=== PATIENT | female | born 1965 | race Caucasian/White ===

== ENCOUNTER 2024-06-25 04:58 | Emergency (ER) | payer OTHER, SELFPAY ==
[2024-06-25 05:00] VITALS: BP 176/104
--- NOTE | 2024-06-25 05:36 | ED.GENMED ---
History of Present Illness
<RAI Rocha - Last Filed: 06/25/24 23:51>
General
Chief Complaint: Abdominal Symptoms
Source: patient
Exam Limitations: none
Time Seen by Provider: 06/25/24 05:21
Nursing documentation reviewed up to this point in time: agreed with
History of Present Illness
History of Present Illness:
Patient is a 58yo F w/ PMH of HLD, DM, hypothyroidism, and cholecystectomy presents to the ED w/ reflux symptoms x3 hrs. Pt was asleep and woken up w/ symptoms around 2 am. She reports 'heart burn' and 3-4 episodes of bilious vomiting. Notes acidic
taste in mouth. Reports occasional reflux sxs in past after eating spicy food. She denies eating any triggering foods yesterday. Reports L-sided chest pain x3 hrs. Pain is described as ache and is not tender. She admits to mild palpitations and MCCURDY.
Denies dizziness, numbness, edema, and vision/hearing changes. She denies recent illness, sick contacts, or travel. Denies alcohol, smoking, or drugs.
Past History
<RAI Rocha - Last Filed: 06/25/24 23:51>
Past History
ED Past Medical History: Hypercholesterolemia and NIDDM
ED Past Surgical History: Cholecystectomy and
Social History
Tobacco: Non-smoker
Alcohol: None
Drug: None
Personal:
Living: with family
Employment: Not employed
Family History
Family History: Other
Review of Systems
<RAI Rocha - Last Filed: 06/25/24 23:51>
Review of Systems
Constitutional: Denies fever, fatigue or chills
Respiratory: Denies cough or trouble breathing
Cardiac: Reports chest pain and palpitations
ABD/GI: Reports abdominal pain and nausea; Denies vomiting, diarrhea or constipated
: Denies dysuria
Musculoskeletal: Denies joint pain, joint swelling, muscle pain, muscle stiffness, edema or neck pain
Neurological: Reports headache; Denies dizzy, weakness or numbness
Phy Exam
<Cristy Mitchell [facility] Filed: 06/25/24 23:51>
General Physical Exam
General Presentation: moderate distress
General age: appears stated age
General Skin: warm and dry
General Habitus: obese
General Mental: alert
Eye Exam
Eye Exam: PERRL
Cardiovascular Exam
Cardiovascular Exam: regular rate/rhythm, no edema, no gallop and no murmur
Pulmonary Exam
Pulmonary Exam: lungs clear, no respiratory distress, no rales, no crackles, no rhonchi, no wheezing and no cough
Gastrointestinal Exam
Gastrointestinal Exam: normal bowel sounds, soft, no organomegaly and non distended
Palpation: left upper quadrant: Moderate tenderness
Neurological Exam
Neurological Exam: alert, oriented x3 and speech normal
Musculoskeletal Exam
Musculoskeletal Exam: no edema
Course
<Cristy Mitchell [facility] Filed: 06/25/24 23:51>
Orders/Labs/Results
Orders:
Orders
06/25/24
Electrocardiogram (*1) Stat
Reason for Study: Chest Pain
Comment: DONE
06/25/24 05:05
Electrocardiogram (*1) Stat
Reason for Study: Abdominal Pain
EKG- Treatment ONCE
06/25/24 05:56
Complete Blood Count/With Diff Urgent
Comprehensive Metabolic Panel Urgent
Lipase Urgent
Troponin I Urgent
06/25/24 06:42
EKG- Treatment ONCE
06/25/24 06:49
Mag Hydrox/Al Hydrox/Simeth [Maalox] 30 ml Phenobarb/Hyoscy/Atropine/Scop [] 10 ml PO NOW
06/25/24 07:16
Mag Hydrox/Al Hydrox/Simeth [Maalox] 30 ml .ROUTE .STK-MED ONE
Phenobarb/Hyoscy/Atropine/Scop [] 10 ml .ROUTE .STK-MED ONE
06/25/24 07:30
Urinalysis Reflex To Culture Urgent
Date Specimen was Collected: 06/25/24
Time Specimen was Collected: 07:25
Urine Microscopic Reflex Cult Urgent
Urine Culture Urgent
LIVIA Source: U
Specimen Description:
Date Specimen was Collected: 06/25/24
Time Specimen was Collected: 07:25
06/25/24 08:06
Troponin I Urgent
Abnormal Lab Results
06/25/24 06/25/24
05:56 07:30
Creatinine 0.5 L mg/dL
(0.6-1.0)
Glucose 290 H mg/dl
(70-99)
Alkaline Phosphatase 150 H U/L
(38-126)
Leukocyte Esterase Rfl 2+ A
(Negative)
Urine WBC (Reflex) 30-40 A /HPF
(0-5)
Urine Bacteria (Reflex) Many A
(Negative)
Urine Yeast Moderate A
(Negative)
Urine Glucose 3+ A
(Negative)
06/25/24 05:56
06/25/24 05:56
Vital Signs
Initial and Last Documented VS:
Initial Vital Signs
Temp Pulse Resp BP Pulse Ox
97.7 F 104 22 176/104 96
06/25/24 05:00 06/25/24 05:00 06/25/24 05:00 06/25/24 05:00 06/25/24 05:00
Last Documented Vital Signs
Temp Pulse Resp BP Pulse Ox
97.7 F 85 17 107/66 92
06/25/24 05:00 06/25/24 10:01 06/25/24 07:15 06/25/24 10:01 06/25/24 10:01
<Baldev Sol, DO - Last Filed: 06/25/24 07:05>
Orders/Labs/Results
Orders:
Orders
06/25/24
Electrocardiogram (*1) Stat
Reason for Study: Chest Pain
Comment: DONE
06/25/24 05:05
Electrocardiogram (*1) Stat
Reason for Study: Abdominal Pain
EKG- Treatment ONCE
06/25/24 05:56
Complete Blood Count/With Diff Urgent
Comprehensive Metabolic Panel Urgent
Lipase Urgent
Troponin I Urgent
06/25/24 06:42
EKG- Treatment ONCE
06/25/24 06:49
Mag Hydrox/Al Hydrox/Simeth [Maalox] 30 ml Phenobarb/Hyoscy/Atropine/Scop [] 10 ml PO NOW
06/25/24 07:16
Mag Hydrox/Al Hydrox/Simeth [Maalox] 30 ml .ROUTE .STK-MED ONE
Phenobarb/Hyoscy/Atropine/Scop [] 10 ml .ROUTE .STK-MED ONE
06/25/24 07:30
Urinalysis Reflex To Culture Urgent
Date Specimen was Collected: 06/25/24
Time Specimen was Collected: 07:25
Urine Microscopic Reflex Cult Urgent
Urine Culture Urgent
LIVIA Source: U
Specimen Description:
Date Specimen was Collected: 06/25/24
Time Specimen was Collected: 07:25
06/25/24 08:06
Troponin I Urgent
Abnormal Lab Results
06/25/24 06/25/24
05:56 07:30
Creatinine 0.5 L mg/dL
(0.6-1.0)
Glucose 290 H mg/dl
(70-99)
Alkaline Phosphatase 150 H U/L
(38-126)
Leukocyte Esterase Rfl 2+ A
(Negative)
Urine WBC (Reflex) 30-40 A /HPF
(0-5)
Urine Bacteria (Reflex) Many A
(Negative)
Urine Yeast Moderate A
(Negative)
Urine Glucose 3+ A
(Negative)
06/25/24 05:56
06/25/24 05:56
Vital Signs
Initial and Last Documented VS:
Initial Vital Signs
Temp Pulse Resp BP Pulse Ox
97.7 F 104 22 176/104 96
06/25/24 05:00 06/25/24 05:00 06/25/24 05:00 06/25/24 05:00 06/25/24 05:00
Last Documented Vital Signs
Temp Pulse Resp BP Pulse Ox
97.7 F 85 17 107/66 92
06/25/24 05:00 06/25/24 10:01 06/25/24 07:15 06/25/24 10:01 06/25/24 10:01
<RAI Rocha - Last Filed: 06/25/24 23:51>
MDM/Problems Addressed
Differential Diagnosis Includes:
GERD, MN, ACS
<RAI Rocha - Last Filed: 06/25/24 23:51>
*Critical Care Note
Total Time (30-74mins, 75-104mins- exclusive of procedures): Not Applicable
ED Attending Note
<RAI Rocha - Last Filed: 06/25/24 23:51>
-
Portions of this chart may have been created with voice recognition software.� Occasional wrong word or��sound alike� substitutions may have occurred due to the inherent limitations of voice recognition software.
<Baldev Sol DO - Last Filed: 06/25/24 07:05>
ED Attending Note
Patient seen and examined by attending physician: Yes
I performed the substantive portion of visit, reviewed & personally made and approve the management plan that is documented in note by myself or LISSETTE.: Yes
ED Attending Note:
Pleasant 58-year-old female that awakened several hours ago with midsternal chest pain consistent with her acid reflux. Patient states that she had 3-4 episodes of bilious vomiting. Patient does have a history of reflux but states it is usually
triggered by acidic foods. She states that she does not have any offending foods this evening. Patient states that after awakening 3 hours prior to arrival she has had constant left-sided chest pain. Denies shortness of breath. Patient was seen
in conjunction with the PA student. I have reviewed and agree with the history and treatment plan presented. On my independent physical exam, patient is awake, alert, and oriented x3, no acute distress. Heart is regular rate and rhythm without
murmurs rubs or gallops present. Lungs are clear to auscultation bilaterally without wheezes rales or rhonchi. Abdomen is soft nontender nondistended no pedal splenomegaly present. Good bowel sounds x 4 quadrants. Skin is warm and dry. Patient
moves all 4 extremities.
Vital signs are stable. Patient not hypoxic
Nursing note reviewed. I agree with nursing documentation up to this point in time.
Home Meds and allergies reviewed.
NUMBER AND COMPLEXITY OF PROBLEMS ADDRESSED AT THE ENCOUNTER
� Chronic conditions affecting care: Hyperlipidemia, jmb-[id number] diabetes
� Acute Exacerbation and/or Progression of Chronic Illness: GERD exacerbation
� Differential Diagnosis includes: GERD, ACS, musculoskeletal pain
AMOUNT AND/OR COMPLEXITY OF DATA TO BE REVIEWED AND ANALYZED
I performed an independent evaluation of the following and my interpretation is:
EKG: EKG shows normal sinus rhythm rate of 98 with left axis deviation present. Normal intervals. Right bundle branch block present. When compared to previous EKG dated February 18, 2022, there is slight T wave inversion in the
anterior leads.
Pulse Ox: Not Hypoxic
Bonding Machine Operator: Sinus Rhythm
CT:
X-rays:
Ultrasound:
Laboratory Studies:
Other:
Review of other/old records: No previous records available
Clinical information was obtained by an independent historian: is present at the bedside
Prescriptions/Medications Considered but not given:
Further testing considered but not performed: None
RISK OF COMPLICATIONS AND/OR MORBIDITY OR MORTALITY OF PATIENT MANAGEMENT
Social determinants of health affecting care: Good Social Support present at the bedside
Discussion with other providers:
Escalation of care including admission/observation vs risk of discharge considered: After being observed in the emergency department, patient is stable for discharge.
CRITICAL CARE NOTE: Not applicable
Total Time (exclusive of procedures):
Update: Patient be signed out pending lab studies and possible imaging
Discharge Plan
Departure
Patient Disposition: Home (Routine Discharge)
Date of Disposition: 06/25/24
Time of Disposition: 09:28
Patient with high blood pressure during this ER visit?: Yes
Condition: Good
Discharge Problem:
Chest pain due to GERD
Instructions: [place] Diet, Acid reflux and GERD in adults, BLOOD PRESSURE
Prescriptions:
New
sucralfate [Carafate] 100 mg/mL suspension
10 ml PO ACHS Qty: 200 0RF
pantoprazole [Protonix] 40 mg tablet,delayed release (DR/EC)
40 mg PO DAILY Qty: 10 0RF
No Action
levothyroxine 25 MCG tablet
25 mcg PO DAILY
metformin 500 MG tablet extended release 24 hr
1,000 mg PO BID
rosuvastatin 20 MG tablet
20 mg PO DAILY
empagliflozin [Jardiance] 25 MG tablet
25 mg PO DAILY
ondansetron 4 MG tablet,disintegrating
4 mg PO TIDPRN PRN (Reason: nausea/vomiting) Qty: 12 0RF
dicyclomine 20 MG tablet
20 mg PO QIDPRN PRN (Reason: PAIN/SPASM) Qty: 13 0RF
prochlorperazine maleate 10 MG tablet
10 mg PO Q8HPRN PRN (Reason: nausea) Qty: 15 0RF
Referrals:
Alicja Rodríguez CRNP [Family Provider] -
Activity Restrictions/Additional Instructions:
It was a pleasure meeting you and taking part in your care. We hope for your continued healing and wellness.
Please read discharge instructions in their entirety. However, they are for general education and may not describe your exact diagnosis at discharge. Information on your ER visit and medical conditions were discussed with you along with appropriate
follow up information...
If indicated, please take your medications as instructed and indicated on discharge paperwork.
Please schedule a follow up appointment as directed. Call to schedule an appointment
Please return to the emergency department with ANY change in, persisting, or worsening of symptoms. If any of your symptoms do not improve, or persist, or become more severe within 6-12 hours, please return to the emergency department for further
care.
Please return to the emergency department if you develop a headache, neck pain/stiffness, fever greater than 100.4F, chest pain, shortness of breath, persistent nausea, vomiting, slurred speech, difficulty walking, numbness/tingling, weakness, signs
of infection or any other symptoms that are worrisome to you.
If you have any questions or concerns please do not hesitate to call the Hospital at or E-mail me directly at [email or web address]
Interventions
Interventions:
*Risk Screen - Suicide Last Done: 06/25/24 05:00
*General Assessment Last Done: 06/25/24 07:31
*Neglect/Abuse Screening Last Done: 06/25/24 05:00
ED- Fall Risk Assessment Last Done: 06/25/24 05:20
*ED COVID-19 Vaccine History Last Done: 10/23/24 07:31
*Nursing Disposition Last Done: 06/25/24 10:28
GK-Ebxpew-Ghzslrgfar Assessment Last Done: 06/25/24 07:24
Discharge Date and Time
Discharge Date/Time: 06/25/24 10:20
Print Language: FRISIAN
[2024-06-25 06:12] LABS: % Basophils 0.7 % (0-2); % Immature Granulocytes 0.5 % (0-0.5); % Lymphocytes 20.8 % (20.5-51.1); % Monocytes 6.7 % (1.7-9.3); % Neutrophils 69.3 % (42.2-75.2); Absolute Basophils 0.1 10^3/uL (0-0.2); Absolute Eosinophils 0.2 10^3/uL (0-0.7); Absolute Lymphocytes 1.7 10^3/uL (1.2-3.4); Absolute Monocytes 0.6 10^3/uL (0.1-0.6); Absolute Neutrophils 5.8 10^3/uL (1.4-6.5); Hemoglobin 13.9 g/dL (12.0-16.0); Mean Corp Hgb Conc. 34.8 g/dL (33.0-37.0); Mean Corpuscular Hgb 30.2 pg (27.0-31.0); Mean Corpuscular Volume 86.8 fL (81.0-99.0); Mean Platelet Volume 9.1 fL (7.4-10.4); Nucleated Red Blood Cells % 0 %; Platelet Count 179 10^3/uL (130-400); Red Blood Cell Count 4.61 10^6/uL (4.20-5.40); Red Cell Dist. Width 12.9 % (11.5-14.5); White Blood Cell Count 8.4 10^3/uL (4.8-10.8)
[2024-06-25 06:27] LABS: ALT (SGPT) 19 U/L (0-35); AST (SGOT) 25 U/L (14-36); Albumin 3.8 g/dl (3.5-5.0); Alkaline Phosphatase 150 U/L (38-126); Blood Urea Nitrogen 9 mg/dl (7-17); Calcium 9.1 mg/dl (8.4-10.2); Carbon Dioxide 22 mmol/L (22-30); Chloride 101 mmol/L (98-107); Glucose 290 mg/dl (70-99); Lipase 82 U/L (23-300); Potassium 3.9 mmol/L (3.5-5.1); Sodium 138 mmol/L (135-145); Total Bilirubin 1.2 mg/dl (0.2-1.3); Total Protein 6.3 g/dl (6.3-8.2); eGFR > 60.00
[2024-06-25 06:30] VITALS: BP 143/86
[2024-06-25 06:32] VITALS: BMI 46.2
[2024-06-25 06:38] LABS: Troponin I < 0.012 ng/ml
[2024-06-25 07:00] VITALS: BP 125/74
[2024-06-25] MEDS: MAALOX 40 PO (07:20)
[2024-06-25 08:00] VITALS: BP 120/74
[2024-06-25 08:03] LABS: Urine Albumin Negative (Neg - Trace); Urine Bilirubin Negative (Negative); Urine Character Slightly Cloudy (Clear); Urine Color Yellow; Urine Glucose 3+ (Negative); Urine Ketone Negative (Negative); Urine Leukocyte 2+ (Negative); Urine Nitrite Negative (Negative); Urine Occult Blood Negative (Negative); Urine Urobilinogen Negative (Neg - 1+)
[2024-06-25 08:41] LABS: Troponin I < 0.012 ng/ml
[2024-06-25 08:45] LABS: Urine Squamous Cell 26-30 /LPF (Few)
[2024-06-25 08:49] LABS: Urine Bacteria Many (Negative); Urine Red Blood Cell 0-2 /HPF (0-2); Urine White Cell 30-40 /HPF (0-5); Urine Yeast Moderate (Negative)
[2024-06-25 08:50] LABS: Urine Amorphous Seen
[2024-06-25 10:01] VITALS: BP 107/66
== END 2024-06-25 10:20 | disposition home or self-care (01) ==
LOC: EMR 04:58
PROVIDERS: EMERGENCY PHYSICIAN Student in an Organized Health Care Education/Training Program; FAMILY PHYSICIAN Nurse Practitioner Adult Health
DX: K21.9 Gastro-esophageal reflux disease without esophagitis (principal); E78.00 Pure hypercholesterolemia, unspecified; E11.9 Type 2 diabetes mellitus without complications; E03.9 Hypothyroidism, unspecified; R03.0 Elevated blood-pressure reading, without diagnosis of hypertension
CPT/HCPCS: 99284; 80053; 81003; 81015; 83690; 84484; 85025; 87086; 93005

== ENCOUNTER 2025-06-10 02:30 | Emergency (ER) | payer OTHER, SELFPAY ==
[2025-06-10 02:37] VITALS: BP 165/99
[2025-06-10 03:09] VITALS: BP 153/70
[2025-06-10 03:15] VITALS: BMI 46.2
[2025-06-10 03:23] LABS: Hematocrit 43.6 % (37.0-47.0); Hemoglobin 14.6 g/dL (12.0-16.0); Mean Corp Hgb Conc. 33.5 g/dL (33.0-37.0); Mean Corpuscular Volume 88.8 fL (81.0-99.0); Nucleated Red Blood Cells % 0 %; Platelet Count 187 10^3/uL (130-400); Red Cell Dist. Width 12.5 % (11.5-14.5)
[2025-06-10 03:43] LABS: ALT (SGPT) 18 U/L (0-35); AST (SGOT) 22 U/L (14-36); Albumin 3.9 g/dl (3.5-5.0); Alkaline Phosphatase 150 U/L (38-126); Blood Urea Nitrogen 8 mg/dl (7-17); Calcium 9.0 mg/dl (8.4-10.2); Carbon Dioxide 25 mmol/L (22-30); Chloride 102 mmol/L (98-107); Estimated Creatinine Clearance > 125 ml/min; Glucose 333 mg/dl (70-99); INR 0.98; Lipase 119 U/L (23-300); Magnesium 1.7 mg/dl (1.6-2.3); PT 13.3 Sec (11.4-14.6); Potassium 4.1 mmol/L (3.5-5.1); Sodium 135 mmol/L (135-145); Total Protein 6.8 g/dl (6.3-8.2); eGFR > 60.00
[2025-06-10 03:44] LABS: APTT 29.1 Sec (23.4-35.0)
[2025-06-10 03:54] LABS: Troponin I < 0.012 ng/ml
[2025-06-10 04:00] VITALS: BP 148/81
[2025-06-10 05:11] VITALS: BP 164/85
[2025-06-10 05:44] LABS: Troponin I < 0.012 ng/ml
[2025-06-10 06:07] VITALS: BP 123/86
--- NOTE | 2025-06-10 06:19 | ED.GENMED ---
History of Present Illness
General
Chief Complaint: Chest Pain
Source: patient
Time Seen by Provider: 06/10/25 03:19
Nursing documentation reviewed up to this point in time: agreed with
History of Present Illness
History of Present Illness:
Note:
CHIEF COMPLAINT(S)
Chest pain
HISTORY OF PRESENT ILLNESS
The patient is a 59-year-old female who presented with chest pain that began last night at approximately 7:00 PM. The pain has been persistent since its onset and is present at the time of evaluation. The patient reports the pain radiating to her
back and abdomen but does not extend beyond these areas. Deep breaths increase the severity of the pain. Stress does not seem to be an aggravating factor, and there are no alleviating factors identified. The patient denies any fever, nausea, or
vomiting. Driving to the medical facility, the patient noted mild exacerbation of the pain.
PLAN
Given the patients presentation and symptomatology, cardiac involvement needs to be ruled out. The plan includes arranging a cardiology consultation. If immediate tests show no acute findings requiring admission or immediate intervention, the
patient will be contacted by cardiology today or tomorrow to schedule an appointment for further evaluation.
DIFFERENTIAL DIAGNOSIS
The Differential Diagnosis includes, in no particular order and is not limited to:
- Acute Coronary Syndrome
- Myocardial Infarction
- Gastroesophageal Reflux Disease
- Costochondritis
- Pulmonary Embolism
- Aortic Dissection
- Pericarditis
- Pneumonia
- Pneumothorax
- Musculoskeletal Pain
Disposition:
SUMMARY OF ENCOUNTER
The patient, a 59-year-old female, presented with chest pain and upper abdominal pain. She was evaluated in the emergency department where her ability to ambulate without a drop in pulse oximetry was confirmed. During the ED stay, it was noted that
the chest pain had resolved. A chest x-ray was conducted, showing normal results. Cardiac enzyme tests, including troponins, were conducted twice and resulted in normal levels.
DISPOSITION
Discharge
ASSESSMENT
The patients chest pain resolved without intervention, and initial tests showed no acute cardiac events.
PLAN
The patient will be discharged home with instructions to contact a chest pain follow-up hotline for further evaluation.
INDEPENDENT REVIEW OF LABS AND INTERPRETATION OF TESTS
- My independent review of the chest x-ray shows no abnormalities.
- My independent review of cardiac enzymes indicates normal troponin levels, confirmed on two occasions.
MEDICAL DECISION MAKING
- Number and Complexity of Problems Addressed: Chronic conditions affecting care acute coronary syndrome, myocardial infarction, gastroesophageal reflux disease, costochondritis, pulmonary embolism, aortic dissection, pericarditis, pneumonia,
pneumothorax, musculoskeletal pain.
- Data:
Category 1
- Lab tests reviewed include two sets of troponins showing normal results.
- Chest x-ray interpreted as normal.
- Risk:
Consideration of Admission/Observation: Escalation of care including admission/observation was considered given the complexity and risk of the patients presenting complaint. However, ultimately I feel the patient is safe for outpatient management
with close follow-up. Reasoning: Work-up reassuring, does not reveal any acute life/organ threatening processes, patients symptoms well-controlled upon reevaluation, reexamination is reassuring, vitals are stable, patient agreeable with discharge,
reliable for follow-up.
DIAGNOSIS
Chest pain, unspecified (ICD-10: R07.9)
Past History
Past History
ED Past Medical History: Hypercholesterolemia and NIDDM
ED Past Surgical History: Cholecystectomy and
Social History
Tobacco: Non-smoker
Alcohol: None
Drug: None
Personal:
Living: with family
Employment: Not employed
Family History
Family History: Other
Course
Orders/Labs/Results
Orders:
Orders
06/10/25 02:32
EKG [Electrocardiogram (*1)] Urgent
Reason for Study: Chest Pain
EKG- Treatment ONCE
06/10/25 03:09
Complete Blood Count/With Diff Urgent
Comprehensive Metabolic Panel Urgent
Lipase Urgent
Magnesium Urgent
PTT Urgent
Prothrombin Time Urgent
Troponin I Urgent
06/10/25 04:50
Electrocardiogram (*1) Urgent
Reason for Study: Chest Pain
EKG- Treatment ONCE
CR Chest - 2 Views Urgent
Comment:
Reason For Exam: cp
06/10/25 04:54
Troponin I Urgent
06/10/25 06:26
Ibuprofen [Motrin] 600 mg .ROUTE .STK-MED ONE
06/10/25 06:28
Ibuprofen [Motrin] 600 mg PO NOW STA
Abnormal Lab Results
06/10/25
03:09
Abs Immat Gran (auto) 0.1 H 10^3/uL
(0-0.05)
Immature Gran % 0.6 H %
(0-0.5)
Creatinine 0.4 L mg/dL
(0.6-1.0)
Glucose 333 H mg/dl
(70-99)
Alkaline Phosphatase 150 H U/L
(38-126)
06/10/25 03:09
06/10/25 03:09
Vital Signs
Initial and Last Documented VS:
Initial Vital Signs
Temp Pulse Resp BP Pulse Ox
98.9 F 94 16 165/99 96
06/10/25 02:37 06/10/25 02:37 06/10/25 02:37 06/10/25 02:37 06/10/25 02:37
Last Documented Vital Signs
Temp Pulse Resp BP Pulse Ox
98.9 F 90 29 123/86 93
06/10/25 02:37 06/10/25 06:30 06/10/25 06:30 06/10/25 06:07 06/10/25 06:30
*Pulse Oximetry
SaO2: 95
Patient hypoxic: no
*Critical Care Note
Total Time (30-74mins, 75-104mins- exclusive of procedures): Not Applicable
ED Attending Note
-
Portions of this chart may have been created with voice recognition software.� Occasional wrong word or��sound alike� substitutions may have occurred due to the inherent limitations of voice recognition software.
Discharge Plan
Departure
Patient Disposition: Home (Routine Discharge)
Date of Disposition: 06/10/25
Time of Disposition: 06:19
Patient with high blood pressure during this ER visit?: Yes
Discharge Problem:
Chest pain
Instructions: Chest Pain DCA Follow Up
Prescriptions:
No Action
levothyroxine 25 MCG tablet
25 mcg PO DAILY
metformin 500 MG tablet extended release 24 hr
1,000 mg PO BID
rosuvastatin 20 MG tablet
20 mg PO DAILY
empagliflozin [Jardiance] 25 MG tablet
25 mg PO DAILY
ondansetron 4 MG tablet,disintegrating
4 mg PO TIDPRN PRN (Reason: nausea/vomiting) Qty: 12 0RF
dicyclomine 20 MG tablet
20 mg PO QIDPRN PRN (Reason: PAIN/SPASM) Qty: 13 0RF
prochlorperazine maleate 10 MG tablet
10 mg PO Q8HPRN PRN (Reason: nausea) Qty: 15 0RF
sucralfate [Carafate] 100 mg/mL suspension
10 ml PO ACHS Qty: 200 0RF
pantoprazole [Protonix] 40 mg tablet,delayed release (DR/EC)
40 mg PO DAILY Qty: 10 0RF
Referrals:
Alicja Rodríguez CRNP [Family Provider, General]
Activity Restrictions/Additional Instructions:
Thank You for choosing [facility].
It was a pleasure meeting you and taking part in your care. We hope for your continued healing and wellness.
Please read discharge instructions in their entirety. However, they are for general education and may not describe your exact diagnosis at discharge. Information on your ER visit and medical conditions were discussed with you along with appropriate
follow up information...
If indicated, please take your medications as instructed and indicated on discharge paperwork.
Please schedule a follow up appointment as directed. Call to schedule an appointment
Please return to the emergency department with ANY change in, persisting, or worsening of symptoms. If any of your symptoms do not improve, or persist, or become more severe within 6-12 hours, please return to the emergency department for further
care.
Please return to the emergency department if you develop a headache, neck pain/stiffness, fever greater than 100.4F, chest pain, shortness of breath, persistent nausea, vomiting, slurred speech, difficulty walking, numbness/tingling, weakness, signs
of infection or any other symptoms that are worrisome to you.
If you have any questions or concerns please do not hesitate to call the Hospital at .
Interventions
Interventions:
*Risk Screen - Suicide Last Done: 06/10/25 02:33
*General Assessment Last Done: 06/10/25 03:16
*Neglect/Abuse Screening Last Done: 06/10/25 03:16
*ED- Fall Risk Assessment Last Done: 06/10/25 03:16
*ED COVID-19 Vaccine History Last Done: 06/10/25 03:16
*ED Influenza Vaccine History Last Done: 06/10/25 03:16
ED- Cardiac Assessment Last Done: 06/10/25 03:16
Discharge Date and Time
Print Language: TURKISH
[2025-06-10] MEDS: MOTRIN 600 MG PO (06:29)
== END 2025-06-10 06:52 | disposition home or self-care (01) ==
LOC: EMR 02:30
PROVIDERS: EMERGENCY PHYSICIAN Student in an Organized Health Care Education/Training Program; FAMILY PHYSICIAN Nurse Practitioner Adult Health
DX: R07.9 Chest pain, unspecified (principal); R03.0 Elevated blood-pressure reading, without diagnosis of hypertension; E11.9 Type 2 diabetes mellitus without complications; E78.00 Pure hypercholesterolemia, unspecified; Z79.84 Long term (current) use of oral hypoglycemic drugs
CPT/HCPCS: 99284; 71046; 80053; 83690; 83735; 84484; 85025; 85610; 85730; 93005